=== PATIENT | male | born 1980 | race Caucasian/White ===

== ENCOUNTER 2016-10-08 21:39 | Emergency (ER) | payer SELFPAY ==
[~2016-10-08] VITALS: Ht 193 cm; Wt 99.8 kg
[~2016-10-08 21:39] MED LIST: ANAPROX275 MG PO; CIPRO 500MG TA500 MG PO; SKELAXIN800 MG PO
[2016-10-08 22:07] LABS: HEMOGLOBIN 14.7 g/dL (14.1-18.0); LYMPH # 2.7 K/mm3 (0.7-4.5); LYMPH % 16.9 % (10-50)
--- NOTE | 2016-10-08 22:09 | Emergency Room Report ---
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 N Clinical Suspician of Infection? Y Mental Status: 1 - Regular (Normal Baseline) Sepsis Risk:Possible Sepsis Risk Have you (or family members/close friends) recently traveled outside the [place]? N If Yes, where/when: Have you had exposure to infectious disease within the past month? N TB? Other? 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 No Angina: No SC: No Hypertension? No Hyperlipidemia? No CHF? No DVT? No PE? No COPD? No Asthma? No Anemia? No GERD? No Gastric ulcers? No GI Bleed? No Hernia? No Thyroid Problems? No Hypothyroidism? No CVA? No Seizures? No Diabetes? No Renal Insuffiency? No End Stage Renal Disease? No UTI? No Stones? No BPH? No GB Disease: No Nephritic Syndrome? No Asplenia? No Hepatitis? No Sickle Cell Disease? No Arthritis? No Migraines? No Cataracts? No Glaucoma? No MRSA? No HIV? No TB? No Anxiety? No Depression? No Cancer? No Immunization Hx DT/Tetanus NOT SURE Surgical Hx Previous Surgery?N Social History Smoking Hx Smoker: Current Every Day Smoker Tobacco: Yes Type Cigarettes Packs/day < 1 Pack Alcohol Alcohol: No Drugs none Review of Systems All Other Systems Reviewed and Negative Constitutional denies fever Eyes denies drainage ENT denies: ear pain, epistaxis, throat pain. Respiratory denies cough, denies shortness of breath Cardiovascular denies chest pain, denies syncope Gastrointestinal denies abdominal pain, denies diarrhea, denies vomiting Genitourinary denies: dysuria, frequency, hesitancy, hematuria. Musculoskeletal denies back pain, denies joint pain, denies joint swelling, denies neck pain Skin denies rash Psychiatric/Neurological denies headache, denies seizure Physical Exam Vital Signs Vital Signs Date Time Temp Pulse Resp B/P Pulse O2 O2 Flow FiO2 Ox Delivery Rate 10/08 2216 20 10/086 100.4 107 20 173/96 96 - WBC >12,000 or <4,000 or 10% bands? 2 or more SIRS Criteria Met? B/P:173/96 MAP:121 Creatinine >2.0? UA output<0.5ml/kg/hr for 2 hrs? Platelet count >100,000? Lactate >2.0mmol/1? INR >1.2 or PTT > than 60 sec? Evidence of Organ Dysfunction? Provider documented clinical suspician of infection? Y Sepsis Criteria Count: 2 Sepsis Risk: Possible Sepsis Risk General Appearance no apparent distress Eye Exam - bilateral eye PERRL, bilateral eye EOMI Ear, Nose, Throat normal ENT inspection Neck supple Respiratory Status No: respiratory distress. Lung Sounds bilateral: lungs clear. 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 No Results/Orders Laboratory Tests 10/08/160: Urine Color JUAN, Urine Appearance CLOUDY, Urine pH 5.5, Ur Specific Early >= 1.030, Urine Protein 1+ H, Urine Ketones TRACE H, Urine Blood NEGATIVE, Urine Nitrate POSITIVE H, Urine Bilirubin NEGATIVE, Urine Urobilinogen 1.0, Ur Leukocyte Esterase NEGATIVE, Urine WBC 3-5, Amorphous Sediment 2+, Urine Bacteria 3+, Urine Glucose NEGATIVE 10/08/162149: Lactic Acid 0.7, ESR 43 H 10/08/162149: Sodium 134 L, Potassium 4.1, Chloride 98, Carbon Dioxide 28, BUN 15, Creatinine 1.1, Estimated Creat Clear 132, Estimated GFR (MDRD) 76, Glucose 113 H, Calcium 9.6, Total Bilirubin 2.2 H, AST 37, ALT 55, Alkaline Phosphatase 66, Total Protein 8.6 H, Albumin 3.7, Globulin 4.9 H, Albumin/Globulin Ratio 0.8 L, WBC 16.1 H, RBC 4.98, Hgb 14.7, Hct 43.0, MCV 86.3, RDW 14.5, Plt Count 288, MPV 7.1 L, Gran % 77.0, Gran # 12.4 H, Total Counted 100, Lymphocytes % 16.9, Monocytes % 5.5, Eosinophils % 0.2, Basophils % 0.4, Neutrophils 78 H, Lymphocytes (Manual) 14, Lymphocytes # 2.7, Monocytes (Manual) 8, Monocytes # 0.9, Eosinophils # 0.0, Basophils # 0.1, RBC/WBC/PLT Morphology NORMAL, Platelet Estimate NORMAL, PUBS MCHC 34.1, MCH 29.4 Current Medication Orders Sig/Jorge Start time Last Medication Dose Route Stop Time Status Admin Ketorolac 0 .STK-MED ONE 10/09 2215 DC Tromethamine .ROUTE Ketorolac 30 MG ONCE ONE 10/08 2214 DC 10/08 Tromethamine IV 10/08 Sodium Chloride 10 ML PRN PRN 10/08 2144 AC IV 10/10 2143 Orders Procedure Date/time Status DIET-NOTHING BY MOUTH 10/09 B Active CULTURE, URINE 10/[address] THORACIC SPINE W/O CONTRAST 10/[address] CHEST W/O CONTRAST 10/[address] SCAN REQ 10/08 2221 Complete THORACIC SPINE-3V SWIMMERS 10/09 2211 Active CHEST(2 VIEWS-NOT PORTABLE) 10/09 2211 Active SED RATE 10/09 2203 Complete C-REACTIVE PROTEIN 10/09 2203 Complete DIFFERENTIAL-WBC 10/08 2149 Complete IV SALINE LOCK 10/08 2144 Active CULTURE, BLOOD 10/08 2144 Active URINALYSIS/COMPLETE 10/08 2144 Complete LACTIC ACID 10/08 2144 Complete COMPLETE METABOLIC PANEL 10/08 2144 Complete CBC WITH AUTO DIFF 10/08 2144 Complete XRAY/CT/US XRAY/CT/US 1 XRAY chest, T-spine XR interpretation by reviewed by me Xray Results abnormal XRAY/CT/US 2 CT chest, T-spine CT interpretation by discussed w/radiologist Time results known: 236 CT Results abnormal Departure Departure Time of Disposition 0001 Disposition Against Medical Advice Clinical Impression Primary Impression: Thoracic back pain Qualifiers: Chronicity: acute Back pain laterality: right Qualified Code: M54.6 - Pain in thoracic spine Condition STABLE Patient Instructions DI for Fever (Symptom) -- Adult Additional Instructions pt left [facility] ED Critical Care Critical Care No at [id number]
--- NOTE | 2016-10-08 22:09 | Emergency Room Report ---
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 N Clinical Suspician of Infection? Y Mental Status: 1 - Regular (Normal Baseline) Sepsis Risk:Possible Sepsis Risk Have you (or family members/close friends) recently traveled outside the [place]? N If Yes, where/when: Have you had exposure to infectious disease within the past month? N TB? Other? 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 No Angina: No AR: No Hypertension? No Hyperlipidemia? No CHF? No DVT? No PE? No COPD? No Asthma? No Anemia? No GERD? No Gastric ulcers? No GI Bleed? No Hernia? No Thyroid Problems? No Hypothyroidism? No CVA? No Seizures? No Diabetes? No Renal Insuffiency? No End Stage Renal Disease? No UTI? No Stones? No BPH? No GB Disease: No Nephritic Syndrome? No Asplenia? No Hepatitis? No Sickle Cell Disease? No Arthritis? No Migraines? No Cataracts? No Glaucoma? No MRSA? No HIV? No TB? No Anxiety? No Depression? No Cancer? No Immunization Hx DT/Tetanus NOT SURE Surgical Hx Previous Surgery?N Social History Smoking Hx Smoker: Current Every Day Smoker Tobacco: Yes Type Cigarettes Packs/day < 1 Pack Alcohol Alcohol: No Drugs none Review of Systems All Other Systems Reviewed and Negative Constitutional denies fever Eyes denies drainage ENT denies: ear pain, epistaxis, throat pain. Respiratory denies cough, denies shortness of breath Cardiovascular denies chest pain, denies syncope Gastrointestinal denies abdominal pain, denies diarrhea, denies vomiting Genitourinary denies: dysuria, frequency, hesitancy, hematuria. Musculoskeletal denies back pain, denies joint pain, denies joint swelling, denies neck pain Skin denies rash Psychiatric/Neurological denies headache, denies seizure Physical Exam Vital Signs Vital Signs Date Time Temp Pulse Resp B/P Pulse O2 O2 Flow FiO2 Ox Delivery Rate 10/08 2216 20 10/086 100.4 107 20 173/96 96 - WBC >12,000 or <4,000 or 10% bands? 2 or more SIRS Criteria Met? B/P:173/96 MAP:121 Creatinine >2.0? UA output<0.5ml/kg/hr for 2 hrs? Platelet count >100,000? Lactate >2.0mmol/1? INR >1.2 or PTT > than 60 sec? Evidence of Organ Dysfunction? Provider documented clinical suspician of infection? Y Sepsis Criteria Count: 2 Sepsis Risk: Possible Sepsis Risk General Appearance no apparent distress Eye Exam - bilateral eye PERRL, bilateral eye EOMI Ear, Nose, Throat normal ENT inspection Neck supple Respiratory Status No: respiratory distress. Lung Sounds bilateral: lungs clear. 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 No Results/Orders Laboratory Tests 10/08/160: Urine Color JUAN, Urine Appearance CLOUDY, Urine pH 5.5, Ur Specific Roann >= 1.030, Urine Protein 1+ H, Urine Ketones TRACE H, Urine Blood NEGATIVE, Urine Nitrate POSITIVE H, Urine Bilirubin NEGATIVE, Urine Urobilinogen 1.0, Ur Leukocyte Esterase NEGATIVE, Urine WBC 3-5, Amorphous Sediment 2+, Urine Bacteria 3+, Urine Glucose NEGATIVE 10/08/162149: Lactic Acid 0.7, ESR 43 H 10/08/162149: Sodium 134 L, Potassium 4.1, Chloride 98, Carbon Dioxide 28, BUN 15, Creatinine 1.1, Estimated Creat Clear 132, Estimated GFR (MDRD) 76, Glucose 113 H, Calcium 9.6, Total Bilirubin 2.2 H, AST 37, ALT 55, Alkaline Phosphatase 66, Total Protein 8.6 H, Albumin 3.7, Globulin 4.9 H, Albumin/Globulin Ratio 0.8 L, WBC 16.1 H, RBC 4.98, Hgb 14.7, Hct 43.0, MCV 86.3, RDW 14.5, Plt Count 288, MPV 7.1 L, Gran % 77.0, Gran # 12.4 H, Total Counted 100, Lymphocytes % 16.9, Monocytes % 5.5, Eosinophils % 0.2, Basophils % 0.4, Neutrophils 78 H, Lymphocytes (Manual) 14, Lymphocytes # 2.7, Monocytes (Manual) 8, Monocytes # 0.9, Eosinophils # 0.0, Basophils # 0.1, RBC/WBC/PLT Morphology NORMAL, Platelet Estimate NORMAL, PUBS MCHC 34.1, MCH 29.4 Current Medication Orders Sig/Jorge Start time Last Medication Dose Route Stop Time Status Admin Ketorolac 0 .STK-MED ONE 10/09 2215 DC Tromethamine .ROUTE Ketorolac 30 MG ONCE ONE 10/08 2214 DC 10/08 Tromethamine IV 10/08 Sodium Chloride 10 ML PRN PRN 10/08 2144 AC IV 10/10 2143 Orders Procedure Date/time Status DIET-NOTHING BY MOUTH 10/09 B Active CULTURE, URINE 10/[address] THORACIC SPINE W/O CONTRAST 10/[address] CHEST W/O CONTRAST 10/[address] SCAN REQ 10/08 2221 Complete THORACIC SPINE-3V SWIMMERS 10/09 2211 Active CHEST(2 VIEWS-NOT PORTABLE) 10/09 2211 Active SED RATE 10/09 2203 Complete C-REACTIVE PROTEIN 10/09 2203 Complete DIFFERENTIAL-WBC 10/08 2149 Complete IV SALINE LOCK 10/08 2144 Active CULTURE, BLOOD 10/08 2144 Active URINALYSIS/COMPLETE 10/08 2144 Complete LACTIC ACID 10/08 2144 Complete COMPLETE METABOLIC PANEL 10/08 2144 Complete CBC WITH AUTO DIFF 10/08 2144 Complete XRAY/CT/US XRAY/CT/US 1 XRAY chest, T-spine XR interpretation by reviewed by me Xray Results abnormal XRAY/CT/US 2 CT chest, T-spine CT interpretation by discussed w/radiologist Time results known: 236 CT Results abnormal Departure Departure Time of Disposition 0001 Disposition Against Medical Advice Clinical Impression Primary Impression: Thoracic back pain Qualifiers: Chronicity: acute Back pain laterality: right Qualified Code: M54.6 - Pain in thoracic spine Condition STABLE Patient Instructions DI for Fever (Symptom) -- Adult Additional Instructions pt left [facility] ED Critical Care Critical Care No at [id number]
--- OUTSIDE RECORDS SUMMARY | 2016-10-08 22:17 | External Medical Summary Rpt ---
Author Author , DAMIAN Mcmanus DAMIAN Address Unknown Phone [email or web address] Care Team Providers Care Grape Grower Name Role Phone ASHVIN DEWITT Unavailable Unavailable ASHVIN DEWITT Unavailable Unavailable [facility] Unavailable [facility] Purpose Continuity of Care Document - 08-17-2012 through 2016 Problems Code Diagnosis DOS Provider Status 13192 DEGEN 10-11-2013 ASHVIN Mcintyre LUMBAR/LUMB OSACRAL INTERVERTEB RAL DISC 7242 LUMBAGO 10-11-2013 [facility] Results Labs Lab Lab Date Result Refere Interp Status Commen Order Detail nces retati t Range on Treponema pallidum IgG Ab [Presence] in Serum by Immunoassay (08-17-2012 08:00) Trepone NON-TOOTIE complet ma 013 CTIVE ed pallidu 08:00 m IgG Ab [Presen ce] in Serum by Immunoa ssay Treponema pallidum IgG Ab [Presence] in Serum by Immunoassay (08-17-2012 08:00) COLLECT NA complet OR 013 ed 08:00 ETHNICI W complet TY 013 ed 08:00 PURPOSE ROUTINE complet OF 013 ed EXAM 08:00 SPECIME BLOOD complet N 013 ed SOURCE 08:00 CHART [id number] complet NUMBER 013 ed 08:00 Trepone Pending complet ma 013 ed pallidu 08:00 m IgG Ab [Presen ce] in Serum by Immunoa ssay Procedures Procedure DOS Code Location Performer Comment RADEX 20579 ASHVIN Mcintyre SP[facility] 4 [place] 2/3 VIEWS RADEX 11922 [facility] [place] MINIMUM 4 VIEWS Encounters Encounter Start End Date Code Location Performer Type Date [facility] T
--- OUTSIDE RECORDS SUMMARY | 2016-10-08 22:17 | External Medical Summary Rpt ---
Author Author , DAMIAN SALGADO Address Unknown Phone [email or web address] Care Team Providers Care Curtain Fitter Name Role Phone ASHVIN DEWITT Unavailable Unavailable ASHVIN DEWITT Unavailable Unavailable [facility] Unavailable [facility]available [facility] Purpose Continuity of Care Document - 10-11-2013 through 2016 Problems Code Diagnosis DOS Provider Status 85011 DEGEN 10-11-2013 ASHVIN Mcintyre LUMBAR/LUMB OSACRAL INTERVERTEB RAL DISC 7242 LUMBAGO 10-11-2013 [facility] Procedures Procedure DOS Code Location Performer Comment RADEX 85952 ASHVIN Mcintyre [facility] 4 [place] 2/3 VIEWS RADEX 33911 [facility] [place] MINIMUM 4 VIEWS Encounters Encounter Start End Date Code Location Performer Type Date [facility] - [facility] T
--- OUTSIDE RECORDS SUMMARY | 2016-10-08 22:17 | External Medical Summary Rpt ---
Author Author , DAMIAN Mcmanus DAMIAN Address Unknown Phone [email or web address] Care Team Providers Care Operations Support Coordinator Name Role Phone ASHVIN DEWITT Unavailable Unavailable ASHVIN DEWITT Unavailable Unavailable [facility] Unavailable [facility]available [facility] Purpose Continuity of Care Document - 08-17-2012 through 2016 Problems Code Diagnosis DOS Provider Status 31268 DEGEN 10-11-2013 ASHVIN Mcintyre LUMBAR/LUMB OSACRAL INTERVERTEB RAL DISC 7242 LUMBAGO 10-11-2013 [facility] Results Labs Lab Lab Date [...] complet N 013 ed SOURCE 08:00 CHART [id number] complet NUMBER 013 ed 08:00 Trepone Pending complet ma 013 ed pallidu 08:00 m IgG Ab [Presen ce] in Serum by Immunoa ssay Procedures Procedure DOS Code Location Performer Comment RADEX 82219 ASHVIN Mcintyre SP[facility] 4 [place] 2/3 VIEWS RADEX 07477 [facility] [place] MINIMUM 4 VIEWS Encounters Encounter Start End Date Code Location Performer Type Date [facility] - [facility] T
--- OUTSIDE RECORDS SUMMARY | 2016-10-08 22:17 | External Medical Summary Rpt ---
Demographics Preferred Language Bengali Marital Status Unknown [employer] Affiliation Unknown Race Unknown Ethnic Group Unknown Author Author , DAMIAN SALGADO Address Unknown Phone Immunization Unable to retrieve immunization data due to connection failure with Immunization Registry. Please try again later.
--- OUTSIDE RECORDS SUMMARY | 2016-10-08 22:17 | External Medical Summary Rpt ---
Demographics Preferred Language Armenian Marital Status Unknown Roman Catholic Affiliation Unknown Race Unknown Ethnic Group Unknown Author Author , DAMIAN SALGADO Address Unknown Phone Immunization Unable to retrieve immunization data due to connection failure with Immunization Registry. Please try again later.
--- OUTSIDE RECORDS SUMMARY | 2016-10-08 22:17 | External Medical Summary Rpt ---
Author Author , DAMIAN SALGADO Address Unknown Phone [email or web address] Care Team Providers Care Vulcanizer Rubber Plate Name Role Phone ASHVIN DEWITT Unavailable Unavailable ASHVIN DEWITT Unavailable Unavailable [facility] Unavailable Unavailable [facility] Purpose Continuity of Care Document - 10-11-2013 through 2016 Problems Code Diagnosis DOS Provider Status 77782 DEGEN 10-11-2013 ASHVIN Mcintyre LUMBAR/LUMB OSACRAL INTERVERTEB RAL DISC 7242 LUMBAGO 10-11-2013 [facility] Procedures Procedure DOS Code Location Performer Comment RADEX 97188 ASHVIN Mcintyre SPINE 4 [place] 2/3 VIEWS RADEX 61485 [facility] SPINE [facility] AL MINIMUM 4 VIEWS Encounters Encounter Start End Date Code Location Performer Type Date [facility] - [facility] T
--- OUTSIDE RECORDS SUMMARY | 2016-10-08 22:18 | External Medical Summary Rpt ---
Author Author [employer], [employer] Organization [employer] Address Unknown Phone Unavailable Results Treponema pallidum IgG Ab [Presence] in Serum by Immunoassay Observa Value Referen Units Interpr Notes Date tion ce etation Range COLLECT NA No No No No Boaz 4 OR informa informa informa informa 2013 tion in tion in tion in tion in 8:00 AM source source source source data data data data ETHNICI W No No No No Aug 4 TY informa informa informa informa 2013 tion in tion in tion in tion in 8:00 AM source source source source data data data data PURPOSE ROUTINE No No No No Aug 4 OF informa informa informa informa 2013 EXAM tion in tion in tion in tion in 8:00 AM source source source source data data data data SPECIME BLOOD No No No No Boaz 4 N informa informa informa informa 2013 SOURCE tion in tion in tion in tion in 8:00 AM source source source source data data data data CHART [id number] No No No No Boaz 4 NUMBER informa informa informa informa 2013 tion in tion in tion in tion in 8:00 AM source source source source data data data data Trepone NON-TOOTIE No No No METHOD Boaz [address] informa informa informa OF 2013 pallidu tion in tion in tion in ANALYSI 8:00 AM m IgG source source source S: Ab data data data EIANORM [Presen AL ce] in RANGE: Serum NON-TOOTIE by CTIVE\. Immunoa br\This ssay report contain s patient informa tion that must be protect ed in accorda nce with the Health Insuran ce Portabi lity and Account ability Act. Treponema pallidum IgG Ab [Presence] in Serum by Immunoassay Observa Value Referen Units Interpr Notes Date tion ce etation Range COLLECT NA No No No No Aug 4 OR informa informa informa informa 2013 tion in tion in tion in tion in 8:00 AM source source source source data data data data ETHNICI W No No No No Aug 17 TY informa informa informa informa 2013 tion in tion in tion in tion in 8:00 AM source source source source data data data data PURPOSE ROUTINE No No No No Aug 17 OF informa informa informa informa 2013 EXAM tion in tion in tion in tion in 8:00 AM source source source source data data data data SPECIME BLOOD No No No No Aug 17 N informa informa informa informa 2013 SOURCE tion in tion in tion in tion in 8:00 AM source source source source data data data data CHART [id number] No No No No Aug 17 NUMBER informa informa informa informa 2013 tion in tion in tion in tion in 8:00 AM source source source source data data data data Trepone Pending No No No \.br\Aug 17 ma informa informa informa is 2013 pallidu tion in tion in tion in report 8:00 AM m IgG source source source contain Ab data data data s [Presen patient ce] in Serum informa by tion Immunoa that ssay must be protect ed in accorda nce with the Health Insuran ce [place] lity and Account ability Act.
--- OUTSIDE RECORDS SUMMARY | 2016-10-08 22:18 | External Medical Summary Rpt ---
[...] source source data data data data CHART [id number] No No No No Boaz 4 NUMBER [...] source source data data data data CHART [id number] No No No No Aug 17 NUMBER [...]
[2016-10-08 22:28] LABS: NEUTROPHILS 78 % (42-76)
[2016-10-08 23:45] LABS: URINE BLOOD NEGATIVE (NEG)
[2016-10-08 23:49] LABS: URINE BILIRUBIN - DIPSTICK NEGATIVE (NEG)
[2016-10-09 03:00] VITALS: BP 173/96
--- NOTE | 2016-10-09 07:06 | RADIOLOGY REPORT PS360 ---
CHEST(2 VIEWS-NOT PORTABLE) HISTORY: Fever and cough cough ORDERING PHYSICIAN: Susie Gonzalez MD PATIENT AGE: 36 years COMPARISON: None available FINDINGS: The cardiomediastinal silhouette and pulmonary vascularity are within normal limits. Calcified granulomas present in the left lung base. Atelectatic changes noted in the right lower lobe. No acute bony anomalies. IMPRESSION: Right basilar atelectasis, old granulomatous disease
--- NOTE | 2016-10-09 07:08 | RADIOLOGY REPORT PS360 ---
EXAM: THORACIC SPINE-3V SWIMMERS HISTORY: Back pain cough COMPARISON: None FINDINGS: Normal alignment. No fracture or dislocation. No lytic or blastic change. There is a mild lower thoracic scoliosis convex left with mild associated degenerative disc disease in the mid to lower thoracic spine. No fracture or dislocation. No lytic or blastic change. IMPRESSION: Mild spondylosis with scoliosis, no acute finding
--- NOTE | 2016-10-09 09:42 | RADIOLOGY REPORT PS360 ---
CT CHEST W/O CONTRAST HISTORY: Chest pain with fever THORACIC PAIN ORDERING PHYSICIAN: Susie Gonzalez MD PATIENT AGE: 36 years TECHNIQUE: Helical acquisition obtained following the intravenous administration of 75 mL of Isovue 370 .. Axial, sagittal, and coronal reformatted images are generated and reviewed. COMPARISON: None FINDINGS: Scattered small calcified nodes are present within mediastinum. Normal heart size. No obvious mediastinal or hilar mass. Calcified granulomas present in the left lower lobe. Atelectatic changes are present in the right lung base. There is mild elevation the right hemidiaphragm. No lobar consolidation or collapse. Upper abdominal images show multiple gallstones IMPRESSION: 1. Old granulomatous disease. 2. Right basilar atelectasis. 3. Cholelithiasis
--- NOTE | 2016-10-09 13:23 | RADIOLOGY REPORT PS360 ---
CT THORACIC SPINE W/O CONTRAST INDICATION: Back pain following injury THORACIC PAIN ORDERING PHYSICIAN: Susie Gonzalez MD PATIENT AGE: 36 years COMPARISON: None TECHNIQUE: Axial images are obtained without contrast. Sagittal and coronal reformatted images are reviewed as well. FINDINGS: There is mild thoracic curvature convex left. No acute thoracic fracture or dislocation is evident. Mild multilevel degenerative disc disease is present. No lytic or blastic change. There are old fractures involving the right L1 and L2 transverse process. Incidental note made of gallstones. IMPRESSION: 1. No acute thoracic fracture. 2. Spondylosis of the thoracic spine. 3. Old right L1 and L2 transverse process fractures
== END 2016-10-09 03:02 | disposition left against medical advice (07) ==
LOC: ER 21:39
PROVIDERS: Emergency Medicine
DX: M54.6 Pain in thoracic spine (principal); R06.02 Shortness of breath; R05 Cough; Z72.0 Tobacco use

== ENCOUNTER 2016-12-31 00:45 | Emergency (ER) | payer SELFPAY ==
[~2016-12-31] VITALS: Ht 190.5 cm; Wt 104.3 kg
[2016-12-31] MEDS ORDERED: NOMEDS XX (01:03)
--- OUTSIDE RECORDS SUMMARY | 2016-12-31 01:12 | External Medical Summary Rpt | CCD ---
Author Author , DAMIAN KAUFFMANNINA Address Unknown Phone Care Team Providers Care Lock And Dam Operator Name Role Phone ASHVIN DEWITT Unavailable Unavailable ASHVIN DEWITT Unavailable Unavailable RICHARD RAMOS Unavailable Unavailable [facility] Unavailable Unavailable INC, [facility], Unavailable Unavailable [facility] Purpose Continuity of Care Document - 08-17-2012 through 2016 Problems Code Diagnosis DOS Provider Status [id number] ELEVATED 10-09-2016 [facility] WHITE BLOOD PHYSICIANS CELL COUNT GROUP UNSPECIFIED M546 PAIN IN 10-09-2016 [facility] THORACIC PHYSICIANS SPINE GROUP Z720 TOBACCO USE 10-09-2016 [facility] 90496 DEGEN 10-11-2013 ASHVIN Mcintyre LUMBAR/LUMB OSACRAL INTERVERTEB RAL DISC 7242 LUMBAGO 10-11-2013 [facility] Medications Na ND Rx Da Fi Fi Am Da Di Ph RX Ph St me C No te ll ll ou ys ag ar # ys at rm s nt no ma ic us Or Da si cy ia de te s n re d CL 00 08 09 56 14 00 EA Ac IN 59 -0 -[address] ti DA 12 5- 1- 00 00 SI ve MY 93 20 20 49 DE CI 20 17 17 69 N 1 34 PH HC AR L MA 30 CY 0 MG OF CY CA NT PS HI UL AN E A IN C PEOPLES 53 08 09 28 14 00 EA Ac LF 74 -0 -[address] ti AM 60 5- 1- 00 00 SI ve ET 27 20 20 49 DE HO 20 17 17 69 XA 5 33 PH ZO AR LE MA -T CY MP OF DS CY NT TA HI BL AN ET A IN C Results Labs Lab Lab Date Result Refere Interp Status Commen Order Detail nces retati t Range on Differential panel, method unspecified - (10-08-2016 21:50) LYMPH 14 % 10% - Normal complet 017 50% ed 21:50 Platele NORMAL complet ts 017 ed [Presen 21:50 ce] in Blood by Light microsc opy Erythro NORMAL complet cyte 017 ed morphol 21:50 ogy finding [Identi fier] in Blood Treponema pallidum IgG Ab [Presence] in Serum [...] complet N 013 ed SOURCE 08:00 CHART [id number] complet NUMBER 013 ed 08:00 Trepone Pending complet ma 013 ed pallidu 08:00 m IgG Ab [Presen ce] in Serum by Immunoa ssay Procedures Procedure DOS Code Location Performer Comment OBSERVATI 75031 [facility] ON/INPATI 7 [facility] 50 MINUTES BLOOD 74884 [facility] COUNT 7 [facility] COMPLETE INC INC AUTO&AUTO DIFRNTL WBC CULTURE 78098 [facility] BACTERIAL 7 [facility] BLOOD INC INC AEROBIC W/ID ISOLATES SUSCEPTIB 76368 [facility] LTY STDY 7 [facility] ANTIMICRB INC INC IAL MICRO/AGA R DILUTJ COMPREHEN 77654 [facility] SIVE 7 [facility] [place] [address] [facility] AMYLASE 7 [place] [address] [facility] LACTATE 7 [facility] G0378 [facility] OBSERVATI 7 [facility] [place] [address] [facility] LIPASE 7 [facility] INC INC RADEX 34162 ASHVIN Mcintyre SPINE 4 LUMBOSACR AL 2/3 VIEWS RADEX 94392 [facility] SPINE 4 [facility] LUMBOSACR INC INC AL MINIMUM 4 VIEWS Encounters Encounter Start End Date Code Location Performer Type Date [facility] - 7 7 [facility] T [facility] - 4 4 [facility] T
--- OUTSIDE RECORDS SUMMARY | 2016-12-31 01:12 | External Medical Summary Rpt | CCD ---
Author Author , DAMIAN KAUFFMNANINA Address Unknown Phone [email or web address] Care Team Providers Care Can Feeder Name Role Phone ASHVIN DEWITT Unavailable Unavailable ASHVIN DEWITT Unavailable Unavailable RICHARD RAMOS Unavailable Unavailable [facility] Unavailable [facility]available INC, [facility], Unavailable Unavailable [facility] Purpose Continuity of Care Document - 08-17-2012 through 2016 Problems Code Diagnosis DOS Provider Status [id number] ELEVATED 10-09-[address] [facility] WHITE BLOOD PHYSICIANS CELL COUNT GROUP UNSPECIFIED M546 PAIN IN 10-09-[address] [facility] THORACIC PHYSICIANS SPINE GROUP Z720 TOBACCO USE 10-09-[address] [facility] 05272 DEGEN 10-11-2013 ASHVIN Mcintyre LUMBAR/LUMB OSACRAL INTERVERTEB [...] complet N 013 ed SOURCE 08:00 CHART [id number] complet NUMBER 013 ed 08:00 Trepone Pending complet ma 013 ed pallidu 08:00 m IgG Ab [Presen ce] in Serum by Immunoa ssay Procedures Procedure DOS Code Location Performer Comment OBSERVATI 49696 [facility] ON/INPATI 7 [facility] 50 MINUTES BLOOD 00269 [facility] COUNT 7 [facility] COMPLETE INC INC AUTO&AUTO DIFRNTL WBC CULTURE 63909 [facility] BACTERIAL 7 [facility] BLOOD INC INC AEROBIC W/ID ISOLATES SUSCEPTIB 74022 [facility] LTY STDY 7 [facility] ANTIMICRB INC INC IAL MICRO/AGA R DILUTJ COMPREHEN 19225 [facility] SIVE 7 [facility] [place] [address] [facility] AMYLASE 7 [place] [address] [facility] LACTATE 7 [facility] G0378 [facility] OBSERVATI 7 [facility] [place] [address] [facility] LIPASE 7 [facility] INC INC RADEX 82636 ASHVIN Mcintyre SPINE 4 LUMBOSACR AL 2/3 VIEWS RADEX 61017 [facility] SPINE 4 [facility] LUMBOSACR INC INC AL MINIMUM 4 VIEWS Encounters Encounter Start End Date Code Location Performer Type Date [facility] - 7 7 [facility] OUT[facility] INC T [facility] - 4 4 [facility] T
--- OUTSIDE RECORDS SUMMARY | 2016-12-31 01:13 | External Medical Summary Rpt | CCD ---
Author Author , DAMIAN Organization DAMIAN Address Unknown Phone [email or web address] Immunization Name Date Rout CVX Reac Dose Comm Prov Is Faci e tion ent ider Refu lity Give sed n Td 08-2 9 999 Hist H149 No H149 (jag 2-19 oric lt), 96 al Info adso rmat rbed ion - Sour ce Unsp ecif ied
--- OUTSIDE RECORDS SUMMARY | 2016-12-31 01:13 | External Medical Summary Rpt | CCD ---
Author Author , DAMIAN KAUFFMANNINA Address Unknown Phone [email or web address] Care Team Providers Care Lease Out Worker Name Role Phone ASHVIN DEWITT Unavailable Unavailable ASHVIN DEWITT Unavailable Unavailable RICHARD RAMOS Unavailable Unavailable [facility] Unavailable Unavailable INC, [facility], Unavailable Unavailable [facility] Purpose Continuity of Care Document - 10-11-2013 through 2016 Problems Code Diagnosis DOS Provider Status [id number] ELEVATED 10-09-2016 [facility] WHITE BLOOD PHYSICIANS CELL COUNT GROUP UNSPECIFIED M546 PAIN IN 10-09-2016 [facility] THORACIC PHYSICIANS SPINE GROUP Z720 TOBACCO USE 10-09-2016 [facility] 89142 DEGEN 10-11-2013 ASHVIN Mcintyre LUMBAR/LUMB OSACRAL INTERVERTEB RAL DISC 7242 LUMBAGO 10-11-2013 [facility] Medications Na ND Rx Da Fi [...] HI BL AN ET A IN C Procedures Procedure DOS [place] [address] [facility] AMYLASE 7 [place] [address] [facility] LACTATE 7 [facility] G0378 [facility] OBSERVATI 7 [facility] ON INC INC SERVICE PER HOUR COMPREHEN 95764 [facility] SIVE 7 [facility] METABOLIC INC INC PANEL BLOOD 54154 [facility] COUNT 7 [facility] COMPLETE INC INC AUTO&AUTO DIFRNTL WBC CULTURE 12597 [facility] BACTERIAL 7 [facility] BLOOD INC INC AEROBIC W/ID ISOLATES SUSCEPTIB 28442 [facility] LTY STDY 7 [facility] ANTIMICRB INC INC IAL MICRO/AGA R DILUTJ OBSERVATI 63516 REPLACED BY [facility] ON/INPATI 7 [facility] [address] [place] [address] [facility] LIPASE 7 [facility] INC RADEX 76593 [facility] SPINE 4 LUMBOSACR AL 2/3 VIEWS RADEX 82434 [facility] SPINE 4 [facility] LUMBOSACR INC INC AL MINIMUM 4 VIEWS Encounters Encounter Start End Date Code Location Performer Type Date [facility] - 7 7 [facility]EN INC T [facility] - 4 4 [facility] T
--- OUTSIDE RECORDS SUMMARY | 2016-12-31 01:13 | External Medical Summary Rpt | CCD ---
Author Author , DAMIAN Organization DAMIAN Address Unknown Phone [email or web address] Immunization Name Date Rout CVX Reac Dose Comm Prov Is Faci e tion ent ider Refu lity Give sed n Td 08-2 9 999 Hist H149 No H149 (jag 2-19 oric lt), 96 al Info adso rmat rbed ion - Sour ce Unsp ecif ied
--- OUTSIDE RECORDS SUMMARY | 2016-12-31 01:13 | External Medical Summary Rpt ---
Author Author DAMIAN Carlos, [employer] Organization [employer] Address Unknown Phone Unavailable Results Amylase [Enzymatic activity/volume] in Serum or Plasma Observa Value Referen Units Interpr Notes Date tion ce etation Range Amylase 25 - 115 U/L Low No Oct 09 [Enzymati informati 2017 c on in 11:20 AM activity/ source volume] data in Serum or Plasma Comprehensive metabolic 2000 panel in Serum or Plasma Observa Value Referen Units Interpr Notes Date tion ce etation Range Albumin/G 1.1 - 1.8 No Low No Oct 09 lobulin informati informati 2016 [Mass on in on in 11:20 AM ratio] in source source Serum or data data Plasma Albumin 3.4 - 5.0 gm/dL No No Oct 09 [Mass/vol informati informati 2017 ume] in on in on in 11:20 AM Serum or source source Plasma data data Alkaline 46 - 116 U/L Normal No Oct 09 phosphata informati 2016 se on in 11:20 AM [Enzymati source c data activity/ volume] in Serum or Plasma Bilirubin 0.2 - 1.0 mg/dL High No Oct 09 .total informati 2016 [Mass/vol on in 11:20 AM ume] in source Serum or data Plasma Urea 7 - 18 mg/dL Normal No Oct 09 nitrogen informati 2016 [Mass/vol on in 11:20 AM ume] in source Serum or data Plasma Calcium 8.5 - mg/dL Normal No Oct 09 [Mass/vol 10.1 informati 2016 ume] in on in 11:20 AM Serum or source Plasma data Chloride 98 - 107 mmoL/L Low No Oct 09 [Moles/vo informati 2016 lume] in on in 11:20 AM Serum or source Plasma data Carbon 21.0 - mmoL/L Normal No Oct 09 dioxide, 32.0 informati 2016 total on in 11:20 AM [Moles/vo source lume] in data Serum or Plasma Creatinin 0.70 - mg/dL Normal No Oct 09 e 1.30 informati 2016 [Mass/vol on in 11:20 AM ume] in source Serum or data Plasma Creatinin 50 - 200 ML/MIN Normal No Oct 09 e renal inform 2017 clearance on in 11:20 AM source predicted data by Cockcroft -Gault formula Estimated >60 ML/MIN No REFERENCE Oct 09 informati RANGE: 2017 glomerula on in >60 11:20 AM r source ML/MIN/1. filtratio data 73 SQUARE n rate METERSIf (GF this patient is -A merican, then multiply theresult by 1.210. Globulin 1.3 - 3.2 gm/dL High No Oct 09 [Mass/vol informati 2016 ume] in on in 11:20 AM Serum source data Glucose 74 - 106 mg/dL High 10/09/16 Oct 09 [Mass/vol 1422:GLU 2016 ume] in previousl 11:20 AM Serum or y Plasma reported as: 114 H mg/dLDILU ANNEMARIE DF 23+ LIPEMIA Potassium 3.5 - 5.1 mmoL/L Normal No Oct 09 inform2016 [Moles/vo on in 11:20 AM lume] in source Serum or data Plasma Sodium 136 - 145 mmoL/L Low No Oct 09 [Moles/vo informati 2016 lume] in on in 11:20 AM Serum or source Plasma data Aspartate 15 - 37 U/L Normal No Oct 092016 aminotran on in 11:20 AM sferase source [Enzymati data c activity/ volume] in Serum or Plasma Alanine 12 - 78 U/L Normal No Oct 09 aminotran 2016 sferase on in 11:20 AM [Enzymati source c data activity/ volume] in Serum or Plasma Protein 6.4 - 8.2 gm/dL Normal No Oct 09 [Mass/vol informati 2016 ume] in on in 11:20 AM Serum or source Plasma data Lipase [Enzymatic activity/volume] in Serum or Plasma Observa Value Referen Units Interpr Notes Date tion ce etation Range Lipase 73 - 393 U/L Low No Oct 09 [Enzymati informati 2016 c on in 11:20 AM activity/ source volume] data in Serum or Plasma Amylase [Enzymatic activity/volume] in Serum or Plasma Observa Value Referen Units Interpr Notes Date tion ce etation Range Amylase 25 - 115 U/L Low No Oct 09 [Enzymati informati 2017 c on in 11:20 AM activity/ source volume] data in Serum or Plasma Comprehensive metabolic 2000 panel in Serum or Plasma Observa Value Referen Units Interpr Notes Date tion ce etation Range Albumin/G 1.1 - 1.8 No Low No Oct 09 lobulin informati informati 2016 [Mass on in on in 11:20 AM ratio] in source source Serum or data data Plasma Albumin 3.4 - 5.0 gm/dL No No Oct 09 [Mass/vol informati informati 2016 ume] in on in on in 11:20 AM Serum or source source Plasma data data Alkaline 46 - 116 U/L Normal No Oct 09 phosphata informati 2016 se on in 11:20 AM [Enzymati source c data activity/ volume] in Serum or Plasma Bilirubin 0.2 - 1.0 mg/dL High No Oct 09 .total informati 2016 [Mass/vol on in 11:20 AM ume] in source Serum or data Plasma Urea 7 - 18 mg/dL Normal No Oct 09 nitrogen informati 2016 [Mass/vol on in 11:20 AM ume] in source Serum or data Plasma Calcium 8.5 - mg/dL Normal No Oct 09 [Mass/vol 10.1 informati 2016 ume] in on in 11:20 AM Serum or source Plasma data Chloride 98 - 107 mmoL/L Low No Oct 09 [Moles/vo informati 2017 lume] in on in 11:20 AM Serum or source Plasma data Carbon 21.0 - mmoL/L Normal No Oct 09 dioxide, 32.0 informati 2016 total on in 11:20 AM [Moles/vo source lume] in data Serum or Plasma Creatinin 0.70 - mg/dL Normal No Oct 09 e 1.30 informati 2017 [Mass/vol on in 11:20 AM ume] in source Serum or data Plasma Creatinin 50 - 200 ML/MIN Normal No Oct 09 e renal informati 2017 clearance on in 11:20 AM source predicted data by Cockcroft -Gault formula Estimated >60 ML/MIN No REFERENCE Oct 09 informati RANGE: 2017 glomerula on in >60 11:20 AM r source ML/MIN/1. filtratio data 73 SQUARE n rate METERSIf (GF this patient is -A merican, then multiply theresult by 1.210. Globulin 1.3 - 3.2 gm/dL High No Oct 09 [Mass/vol informati 2017 ume] in on in 11:20 AM Serum source data Glucose 74 - 106 mg/dL High DILUTED Oct 09 [Mass/vol DF 23+ 2016 ume] in LIPEMIA 11:20 AM Serum or Plasma Potassium 3.5 - 5.1 mmoL/L Normal No Oct 092016 [Moles/vo on in 11:20 AM lume] in source Serum or data Plasma Sodium 136 - 145 mmoL/L Low No Oct 09 [Moles/vo informati 2016 lume] in on in 11:20 AM Serum or source Plasma data Aspartate 15 - 37 U/L Normal No Oct 092016 aminotran on in 11:20 AM sferase source [Enzymati data c activity/ volume] in Serum or Plasma Alanine 12 - 78 U/L Normal No Oct 09 aminotran 2016 sferase on in 11:20 AM [Enzymati source c data activity/ volume] in Serum or Plasma Protein 6.4 - 8.2 gm/dL Normal No Oct 09 [Mass/vol informati 2016 ume] in on in 11:20 AM Serum or source Plasma data Lipase [Enzymatic activity/volume] in Serum or Plasma Observa Value Referen Units Interpr Notes Date tion ce etation Range Lipase 73 - 393 U/L Low No Oct 09 [Enzymati informati 2016 c on in 11:20 AM activity/ source volume] data in Serum or Plasma Lactate [Moles/volume] in Blood Observa Value Referen Units Interpr Notes Date tion ce etation Range Lactate 0.4 - 2.0 mmol/L Normal No Oct 09 [Moles/vo informati 2016 lume] in on in 11:20 AM Blood source data CBC W Auto Differential panel in Blood Observa Value Referen Units Interpr Notes Date tion ce etation Range Basophils 0 - 0.2 K/MM3 Normal No Oct 092016 [#/volume on in 11:20 AM ] in source Blood by data Automated count Basophils 0.1 - 2.0 % Normal No Oct 09 /100 2016 leukocyte on in 11:20 AM s in source Blood by data Automated count Eosinophi 0.0 - 0.4 K/mm3 Normal No Oct 09 ls 2016 [#/volume on in 11:20 AM ] in source Blood by data Automated count Eosinophi 0.1 - % Normal No Oct 09 ls/100 12.0 informati 2016 leukocyte on in 11:20 AM s in source Blood by data Automated count Granulocy 1.3 - 8.0 K/mm3 High No Oct 09 chai informati 2016 [#/volume on in 11:20 AM ] in source Blood by data Automated count Granulocy 37.0 - % High No Oct 09 chai/100 80.0 informati 2016 leukocyte on in 11:20 AM s in source Blood by data Automated count Hematocri 42.0 - % Low No Oct 09 t [Volume 52.0 informati 2016 on in 11:20 AM Fraction] source of Blood data Hemoglobi 14.1 - g/dL Low No Oct 09 n 18.0 informati 2016 [Mass/vol on in 11:20 AM ume] in source Blood data Lymphocyt 0.7 - 4.5 K/mm3 Normal No Oct 09 es informati 2016 [#/volume on in 11:20 AM ] in source Unspecifi data ed specimen by Automated count Lymphocyt 10 - 50 % Normal No Oct 09 es informati 2016 [#/volume on in 11:20 AM ] in source Unspecifi data ed specimen by Automated count Erythrocy 27 - 31.2 pg Normal No Oct 09 te mean inform2016 corpuscul on in 11:20 AM ar source hemoglobi data n [Entitic mass] Erythrocy 31.8 - g/dl Normal No Oct 09 te mean 35.4 inform2016 corpuscul on in 11:20 AM ar source hemoglobi data n concentra tion [Mass/vol ume] by Automated count Erythrocy 82.2 - fl Normal No Oct 09 te mean 97.8 informati 2016 corpuscul on in 11:20 AM ar volume source [Entitic data volume] by Automated count Monocytes 0.1 - 1.0 K/mm3 Normal No Oct 09 informati 2016 [#/volume on in 11:20 AM ] in source Blood by data Automated count Monocytes 1.7 - 9.3 % Normal No Oct 09 / informati 2016 leukocyte on in 11:20 AM s in source Blood by data Automated count Platelet 7.4 - fl Normal No Oct 09 mean 10.4 informati 2016 volume on in 11:20 AM [Entitic source volume] data in Blood by Automated count Platelets 142 - 424 K/mm3 Normal No Oct 09 inform2016 [#/volume on in 11:20 AM ] in source Blood data Erythrocy 4.6 - 6.2 M/mm3 Low No Oct 09 chai inform2016 [#/volume on in 11:20 AM ] in source Amniotic data fluid Erythrocy 11.5 - % Normal No Oct 09 te 17.5 inform2016 distribut on in 11:20 AM ion width source [Entitic data volume] by Automated count Leukocyte 4.8 - K/MM3 High No Oct 09 s 10.8 informati 2016 [#/volume on in 11:20 AM ] in source Blood data Erythrocyte sedimentation rate by Westergren method Observa Value Referen Units Interpr Notes Date tion ce etation Range Erythrocy 0 - 15 mm/hr High No Oct 08 te informati 2016 9:50 sedimenta on in PM tion rate source by data Westergre n method CBC W Auto Differential panel in Blood Observa Value Referen Units Interpr Notes Date tion ce etation Range Basophils 0 - 0.2 K/MM3 Normal No Oct 08 inform2016 9:50 [#/volume on in PM ] in source Blood by data Automated count Basophils 0.1 - 2.0 % Normal No Oct 08 / informati 2016 9:50 leukocyte on in PM s in source Blood by data Automated count Eosinophi 0.0 - 0.4 K/mm3 Normal No Oct 08 ls informati 2016 9:50 [#/volume on in PM ] in source Blood by data Automated count Eosinophi 0.1 - % Normal No Oct 08 ls/100 12.0 informati 2016 9:50 leukocyte on in PM s in source Blood by data Automated count Granulocy 1.3 - 8.0 K/mm3 High No Oct 08 chai informati 2016 9:50 [#/volume on in PM ] in source Blood by data Automated count Granulocy 37.0 - % Normal No Oct 08 chai/100 80.0 informati 2016 9:50 leukocyte on in PM s in source Blood by data Automated count Hematocri 42.0 - % Normal No Oct 08 t [Volume 52.0 informati 2016 9:50 on in PM Fraction] source of Blood data Hemoglobi 14.1 - g/dL Normal No Oct 08 n 18.0 informati 2016 9:50 [Mass/vol on in PM ume] in source Blood data Lymphocyt 0.7 - 4.5 K/mm3 Normal No Oct 08 es informati 2016 9:50 [#/volume on in PM ] in source Unspecifi data ed specimen by Automated count Lymphocyt 10 - 50 % Normal No Oct 08 es informati 2016 9:50 [#/volume on in PM ] in source Unspecifi data ed specimen by Automated count Erythrocy 27 - 31.2 pg Normal No Oct 08 te mean informati 2016 9:50 corpuscul on in PM ar source hemoglobi data n [Entitic mass] Erythrocy 31.8 - g/dl Normal No Oct 08 te mean 35.4 informati 2016 9:50 corpuscul on in PM ar source hemoglobi data n concentra tion [Mass/vol ume] by Automated count Erythrocy 82.2 - fl Normal No Oct 08 te mean 97.8 informati 2016 9:50 corpuscul on in PM ar volume source [Entitic data volume] by Automated count Monocytes 0.1 - 1.0 K/mm3 Normal No Oct 08 informati 2016 9:50 [#/volume on in PM ] in source Blood by data Automated count Monocytes 1.7 - 9.3 % Normal No Oct 08 informati 2016 9:50 leukocyte on in PM s in source Blood by data Automated count Platelet 7.4 - fl Low No Oct 08 mean 10.4 informati 2016 9:50 volume on in PM [Entitic source volume] data in Blood by Automated count Platelets 142 - 424 K/mm3 Normal No Oct 08 informati 2016 9:50 [#/volume on in PM ] in source Blood data Erythrocy 4.6 - 6.2 M/mm3 Normal No Oct 08 chai informati 2016 9:50 [#/volume on in PM ] in source Amniotic data fluid Erythrocy 11.5 - % Normal No Oct 08 te 17.5 informati 2016 9:50 distribut on in PM ion width source [Entitic data volume] by Automated count Leukocyte 4.8 - K/MM3 High No Oct 08 s 10.8 informati 2016 9:50 [#/volume on in PM ] in source Blood data Differential panel, method unspecified - Observa Value Referen Units Interpr Notes Date tion ce etation Range LYMPH 14 10 - 50 % Normal No Oct 08 inform2016 tion in 9:50 PM source data Monocytes 2 - 9 % Normal No [place] 26 /100 informati 2017 9:50 leukocyte on in PM s in source Blood by data Automated count Platele NORMAL No No No No Oct 08 ts informa informa informa informa 2016 [Presen tion in tion in tion in tion in 9:50 PM ce] in source source source source Blood data data data data by Light microsc opy Neutrophi 42 - 76 % High No Oct 08 ls informati 2016 9:50 [#/volume on in PM ] in source Blood by data Automated count Erythro NORMAL No No No No Oct 08 cyte informa informa informa informa 2017 morphol tion in tion in tion in tion in 9:50 PM ogy source source source source finding data data data data [Identi fier] in Blood Cells No #CELLS No No Oct 08 Counted informati informati informati 2016 9:50 Total [#] on in on in on in PM in Blood source source source data data data Lactate [Moles/volume] in Blood Observa Value Referen Units Interpr Notes Date tion ce etation Range Lactate 0.4 - 2.0 mmol/L Normal No Oct 08 [Moles/vo informati 2016 9:50 lume] in on in PM Blood source data CRP Observa Value Referen Units Interpr Notes Date ti ce etation Range CRP 0.0 - 0.9 MG/DL High No Oct 08 informati 2017 9:50 on in PM source data Comprehensive metabolic 2000 panel in Serum or Plasma Observa Value Referen Units Interpr Notes Date ti ce etation Range Albumin/G 1.1 - 1.8 No Low No Oct 08 lobulin informati informati 2016 9:50 [Mass on in on in PM ratio] in source source Serum or data data Plasma Albumin 3.4 - 5.0 gm/dL Normal No Oct 08 [Mass/vol informati 2016 9:50 ume] in on in PM Serum or source Plasma data Alkaline 46 - 116 U/L Normal No Oct 08 phosphata informati 2016 9:50 se on in PM [Enzymati source c data activity/ volume] in Serum or Plasma Bilirubin 0.2 - 1.0 mg/dL High No Oct 08 .total informati 2017 9:50 [Mass/vol on in PM ume] in source Serum or data Plasma Urea 7 - 18 mg/dL Normal No Oct 08 nitrogen informati 2016 9:50 [Mass/vol on in PM ume] in source Serum or data Plasma Calcium 8.5 - mg/dL Normal No Oct 08 [Mass/vol 10.1 informati 2016 9:50 ume] in on in PM Serum or source Plasma data Chloride 98 - 107 mmoL/L Normal No Oct 08 [Moles/vo informati 2016 9:50 lume] in on in PM Serum or source Plasma data Carbon 21.0 - mmoL/L Normal No Oct 08 dioxide, 32.0 informati 2016 9:50 total on in PM [Moles/vo source lume] in data Serum or Plasma Creatinin 0.70 - mg/dL Normal No Oct 08 e 1.30 informati 2016 9:50 [Mass/vol on in PM ume] in source Serum or data Plasma Creatinin 50 - 200 ML/MIN Normal No Oct 08 e renal informati 2016 9:50 clearance on in PM source predicted data by Cockcroft -Gault formula Estimated >60 ML/MIN No REFERENCE Oct 08 informati RANGE: 2017 9:50 glomerula on in >60 PM r source ML/MIN/1. filtratio data 73 SQUARE n rate METERSIf (GF this patient is -A merican, then multiply theresult by 1.210. Globulin 1.3 - 3.2 gm/dL High No Oct 08 [Mass/vol informati 2016 9:50 ume] in on in PM Serum source data Glucose 74 - 106 mg/dL High No Oct 08 [Mass/vol informati 2016 9:50 ume] in on in PM Serum or source Plasma data Potassium 3.5 - 5.1 mmoL/L Normal No Oct 08 informati 2016 9:50 [Moles/vo on in PM lume] in source Serum or data Plasma Sodium 136 - 145 mmoL/L Low No Oct 08 [Moles/vo informati 2016 9:50 lume] in on in PM Serum or source Plasma data Aspartate 15 - 37 U/L Normal No Oct 08 informati 2016 9:50 aminotran on in PM sferase source [Enzymati data c activity/ volume] in Serum or Plasma Alanine 12 - 78 U/L Normal No Oct 08 aminotran informati 2016 9:50 sferase on in PM [Enzymati source c data activity/ volume] in Serum or Plasma Protein 6.4 - 8.2 gm/dL High No Oct 08 [Mass/vol informati 2017 9:50 ume] in on in PM Serum or source Plasma data Treponema pallidum IgG Ab [Presence] in Serum by Immunoassay Observa Value Referen Units Interpr Notes Date tion ce etation Range COLLECT NA No No No No Aug 17 OR informa informa informa informa 2013 tion [...] source source data data data data CHART [id number] No No No No Aug 17 NUMBER informa informa informa informa 2013 tion in tion in tion in tion in 8:00 AM source source source source data data data data Trepone NON-TOOTIE No No No METHOD Aug [address] informa informa informa OF 2013 [...] COLLECT NA No No No No Aug 17 OR informa informa informa informa 2013 tion [...] source source data data data data CHART [id number] No No No No Aug 17 NUMBER [...] [Presen patient ce] in Serum informa by denisha Immunoleonardo that ssay must be protect ed in accorda nce with the Health Ins[employer] ce [place] laws and Account ability Act.
--- OUTSIDE RECORDS SUMMARY | 2016-12-31 01:13 | External Medical Summary Rpt | CCD ---
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 Role Phone ASHVIN DEWITT Unavailable Unavailable ASHVIN DEWITT Unavailable Unavailable RICHARD RAMOS Unavailable Unavailable [facility] Un[facility], [facility], Unavailable Unavailable [facility] Purpose Continuity of Care Document - 10-11-2013 through 2016 Problems Code Diagnosis DOS Provider Status [id number] ELEVATED 10-09-2016 [facility] CELL COUNT GROUP UNSPECIFIED M546 PAIN IN 10-09-2016 [facility] SPINE [facility] Z720 TOBACCO USE 10-09-2016 [facility] [id number] DEGEN 10-11-2013 ASHVIN Mcintyre LUMBAR/LUMB OSACRAL INTERVERTEB RAL DISC 7242 LUMBAGO 10-11-2013 [facility] Medications Na ND Rx Da Fi [...] DOS [place] [address] [facility] AMYLASE [facility] [place] [address] [facility] LACTATE [facility] [id number] [facility] OBSERVATI 7 [facility] ON INC INC SERVICE PER HOUR COMPREHEN 68076 [facility] SIVE 7 [facility] METABOLIC INC INC PANEL BLOOD 96456 [facility] COUNT [facility] COMPLETE INC INC AUTO&AUTO DIFRNTL WBC CULTURE 79678 [facility] BACTERIAL 7 [facility] BLOOD INC INC AEROBIC W/ID ISOLATES SUSCEPTIB 63716 [facility] LTY STDY 7 [facility] ANTIMICRB INC INC IAL MICRO/AGA R DILUTJ OBSERVATI 61071 [facility] ON/INPATI 7 [facility] [address] [place] [address] [facility] LIPASE 7 [facility] INC INC RADEX 99055 [facility] D [facility] D SPINE 4 [facility] [place] 2/3 VIEWS RADEX 93645 [facility] SPINE 4 [facility] LUMBOSACR INC INC AL MINIMUM 4 VIEWS Encounters Encounter Start End Date Code Location Performer Type Date HOSPITAL [facility] - [facility] 7 [facility] OUTPATIEN INC T [facility] - [facility] T
--- OUTSIDE RECORDS SUMMARY | 2016-12-31 01:13 | External Medical Summary Rpt ---
[...] source source data data data data CHART [id number] No No No No Aug 17 NUMBER [...] source source data data data data CHART [id number] No No No No Aug 17 NUMBER [...]
--- NOTE | 2016-12-31 01:15 | Emergency Room Report ---
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 N Clinical Suspician of Infection? N Mental Status: 1 - Regular (Normal Baseline) Sepsis Risk:Low Sepsis Risk Have you (or family members/close friends) recently traveled outside the [place]? N If Yes, where/when: Have you had exposure to infectious disease within the past month? N TB? Other? Specify: Source patient, RN notes reviewed, police, old records Exam Limitations no limitations Comment pt with reported heroin use earlier doing better now - no c/o Cardiac Chest Pain Chest pain indicative of cardiac No Timing/Duration this evening Severity moderate ALLERGIES Coded Allergies: No Known Allergies (10/08/16) Home Medications Reported Medications No Home Medications (NO HOME MEDICATIONS) 1 EACH XX ONCE History Medical History General CAD? No Angina: No CA: No Hypertension? No Hyperlipidemia? No CHF? No DVT? No PE? No COPD? No Asthma? No Anemia? No GERD? No Gastric ulcers? No GI Bleed? No Hernia? No Thyroid Problems? No Hypothyroidism? No CVA? No Seizures? No Diabetes? No Renal Insuffiency? No End Stage Renal Disease? No UTI? No Stones? No BPH? No GB Disease: No Nephritic Syndrome? No Asplenia? No Hepatitis? No Sickle Cell Disease? No Arthritis? No Migraines? No Cataracts? No Glaucoma? No MRSA? No HIV? No TB? No Anxiety? No Depression? No Cancer? No More? Yes Additional hx: HX OF DRUG ABUSE Immunization Hx DT/Tetanus Unknown Pneumonia Unknown Surgical Hx Previous Surgery?N Family History Family Hx Diabetes Yes CAD Yes Hypertension Yes Hyperlipidemia Yes Cancer Yes TB No Social History Smoking Hx Smoker: Current Every Day Smoker Tobacco: Yes Type Cigarettes Packs/day 1 1/2 - 2 Packs Alcohol Alcohol: No Drugs heroin Review of Systems All Other Systems Reviewed and Negative Constitutional denies fever Eyes denies drainage ENT denies: ear discharge. Respiratory denies cough Cardiovascular denies chest pain, denies syncope Gastrointestinal denies abdominal pain, denies diarrhea, denies vomiting Genitourinary denies: dysuria, frequency, hesitancy, hematuria. Musculoskeletal denies back pain, denies joint pain, denies joint swelling, denies neck pain Skin denies rash Psychiatric/Neurological denies headache, denies seizure Physical Exam Vital Signs Vital Signs Date Time Temp Pulse Resp B/P Pulse O2 O2 Flow FiO2 Ox Delivery Rate 12/31 0058 98.6 998 12 143/100 99 - WBC >12,000 or <4,000 or 10% bands? 2 or more SIRS Criteria Met? B/P:143/100 MAP:114 Creatinine >2.0? UA output<0.5ml/kg/hr for 2 hrs? Platelet count >100,000? Lactate >2.0mmol/1? INR >1.2 or PTT > than 60 sec? Evidence of Organ Dysfunction? Provider documented clinical suspician of infection? N Sepsis Criteria Count: 1 Sepsis Risk: Low Sepsis Risk General Appearance no apparent distress Eye Exam - bilateral eye PERRL, bilateral eye EOMI Ear, Nose, Throat normal ENT inspection Neck supple Respiratory Status No: respiratory distress. Lung Sounds bilateral: lungs clear. 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 No Departure Departure Time of Disposition 0111 Disposition DC Home or Self Care(routine) Clinical Impression Primary Impression: Medical clearance for incarceration Condition STABLE Patient Instructions DI for Drug Abuse and Drug Addiction Additional Instructions see pcp for follow up Discharge Counseling Counseled pt/family regarding diagnosis, follow up needs ED Critical Care Critical Care No at 0114
[2016-12-31 01:19] VITALS: BP 143/100
== END 2016-12-31 01:20 | disposition home or self-care (01) ==
LOC: ER 00:45
DX: Z02.89 Encounter for other administrative examinations (principal); F11.10 Opioid abuse, uncomplicated; F17.210 Nicotine dependence, cigarettes, uncomplicated